=== PATIENT | female | born 1960 | race Caucasian/White ===

== ENCOUNTER 2017-06-07 20:23 | Emergency (ER) | payer BC ==
[~2017-06-07] VITALS: Ht 165.1 cm; Wt 110.0 kg
[~2017-06-07 20:23] MED LIST: ALBU1AER INH; CLON.1 PO; CYCL-36 PO; HYDR-3129 PO; MEDR4PAK3 PO; NEUR800T PO; XANA0.5T PO
[2017-06-07 20:25] VITALS: BP 196/103; PULSE 99; RESP 22; TEMP 99.4; O2SAT 98
--- NOTE | 2017-06-07 20:43 | PD ---
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 Vital signs reviewed. Seen at triage desk. Awaiting bed placement. Data Data Last Documented VS Vital Signs Date Time Temp Pulse Resp B/P Pulse Ox O2 Delivery O2 Flow Rate FiO2 06/07/17 20:25 99.4 99 22 196/103 98 Room Air MDM Medical Record Reviewed: Yes Supervised Visit with KIRAN: Luis Alberto Marrero Jun 07, 2017 20:43
[2017-06-07] MEDS ORDERED: methylPREDNISolone SOD SUCC 125 MG/2 ML VIAL IVP ONE (21:30)
[2017-06-07] MEDS ORDERED: SODIUM CHLORIDE 0.9% FLUSH 10 ML FLUSH IVF PRN (21:30)
[2017-06-07] MEDS: RESP: ALBUTEROL 2.5 MG/IPRATROPIUM 0.5 MG NEB (SCH) INH (21:41)
--- NOTE | 2017-06-07 21:41 | RADRPT ---
EXAM DATE/TIME: 06/07/2017 21:30 [facility] COMPARISON: CHEST SINGLE AP, May 22, 2016, 17:07. INDICATIONS : Short of breath, chest pain MEDICAL HISTORY : Hypertension. Chronic obstructive pulmonary disease. SURGICAL HISTORY : None. ENCOUNTER: Initial ACUITY: 3 weeks PAIN SCORE: 10/10 LOCATION: chest FINDINGS: A single view of the chest demonstrates the lungs to be symmetrically aerated without evidence of mas s, infiltrate or effusion. The cardiomediastinal contours are unremarkable. Osseous structures are intact.CONCLUSION: 1. No acute findings. No effusion or pneumothorax. Fidencio Tinsley MD on June 07, 2017 at 21:37 Board Certified Radiologist. This report was verified electronically.
--- NOTE | 2017-06-07 21:45 | EKG ---
Date Performed: 06/07/2017 Time Performed: 21:00:33 PTAGE: 56 years EKG: Sinus rhythm LOW QRS VOLTAGE IN PRECORDIAL LEADS BORDERLINE ECG No significant change from prior electrocardiogra mJulio DOCTOR: Dino Osman Interpretating Date/Time 06/07/2017 21:44:07
[2017-06-07] MEDS ORDERED: PRED20 PO (21:48)
[2017-06-07] MEDS ORDERED: ALBUAER3 INH (21:48)
--- NOTE | 2017-06-07 21:48 | PD ---
HPI Chief Complaint: Respiratory Symptoms Time Seen by Provider: 21:19 Travel History International Travel<30 days: No Contact w/Intl Traveler<30days: No Traveled to known affect area: No History of Present Illness HPI 56 yo F c/o shortness of breath x 3 weeks. SOB is worse with exertion. No orthopnea. No cough or fever. No CP. Pt has hx COPD. She smokes 1 cigarette daily. Pt was recently seen at [facility] for similar complaint and she went home with albuterol bullets however has no condenser and has been unable to use it. Steroids prescribed with prior visit were marginally helpful. PFSH Past Medical History Arthritis: No Asthma: No Autoimmune Disease: No Blood Disorders: No Anxiety: No Depression: No Heart Rhythm Problems: No Cancer: Yes (R KIDNEY) Cardiac Catheterization: No Cardiovascular Problems: Yes (htn) High Cholesterol: No Chemotherapy: No Chest Pain: No Congestive Heart Failure: No COPD: Yes Cerebrovascular Accident: Yes Diabetes: No Diminished Hearing: No Endocrine: No Gastrointestinal Disorders: No GERD: No Glaucoma: No Genitourinary: No Headaches: No Hepatitis: No Hiatal Hernia: No Hypertension: Yes Immune Disorder: No Kidney Stones: No Musculoskeletal: Yes (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) Neurologic: No Psychiatric: No Reproductive: No Respiratory: Yes (copd) Immunizations Current: Yes Migraines: No Myocardial Infarction: No Radiation Therapy: No Renal Failure: No Seizures: No Sickle Cell Disease: No Sleep Apnea: No Thyroid Disease: No Ulcer: No PNEUMOCCOCAL Vaccine (Year): 2 Menopausal: Yes : 0 Past Surgical History Abdominal Surgery: Yes (RIGHT SIDED ABD HERNIA REPAIR) AICD: No Appendectomy: Yes Arteriovenous Shunt: No Body Medical Devices: MESH OVER RIGHT KIDNEY AREA Cardiac Surgery: No Cholecystectomy: Yes Coronary Artery Bypass Graft: No Ear Surgery: No Endocrine Surgery: No Eye Surgery: No Genitourinary Surgery: Yes (RT NEPHRECTOMY SECONDARY TO CANCER) Gynecologic Surgery: No Insulin Pump: No Joint Replacement: No Oral Surgery: No Pacemaker: No Prostatectomy: No Thoracic Surgery: No Tonsillectomy: Yes Other Surgery: Yes Social History Alcohol Use: Yes Tobacco Use: Yes (11/15 PPD) Substance Use: No Allergies-Medications (Allergen,Severity, Reaction): Coded Allergies: Aspirin (Verified Adverse Reaction, Intermediate, Nausea/Vomiting, 06/07/17 ) Shellfish (Verified Adverse Reaction, Intermediate, NAUSEA/VOMITING, ) Morphine (Verified Adverse Reaction, Mild, Hallucinations, 06/07/17) Reported Meds & Prescriptions Reported Meds & Active Scripts Active Proair Hfa 8.5 GM Inh (Albuterol Sulfate) 90 Mcg/Act Aer 2 Puff INH Q4-6H PRN 108 mcg/actuation Prednisone 20 Mg Tab 40 Mg PO DAILY 4 Days Take 40 mg (2 tablets) daily for 5 days Medrol Dosepak (Methylprednisolone) 4 Mg Coleman 4 Mg PO DIRECTED TAKE DIRECTED Reported Gabapentin 300 Mg Cap 300 Mg PO HS Clonidine (Clonidine HCl) 0.1 Mg Tab 0.1 Mg PO BID Flexeril (Cyclobenzaprine HCl) 10 Mg Tab 10 Mg PO DAILY [place] (Hydrocodone-Acetaminophen) 10-325 Mg Tab 1 Tab PO Q6H PRN Review of Systems Except as stated in HPI: all other systems reviewed are Neg General / Constitutional: No: Fever Respiratory: Positive: Shortness of Breath Physical Exam Narrative GENERAL: 56 yo F, WNWD, speaking sentences SKIN: Warm and dry. HEAD: Atraumatic. Normocephalic. EYES: Pupils equal and round. No scleral icterus. No injection or drainage. ENT: No nasal bleeding or discharge. Mucous membranes pink and moist. NECK: Trachea midline. No JVD. CARDIOVASCULAR: Regular rate and rhythm. RESPIRATORY: Slightly diminished breath sounds bilaterally. RR approx 18. GASTROINTESTINAL: Abdomen soft, non-tender, nondistended. Hepatic and splenic margins not palpable. MUSCULOSKELETAL: Extremities without clubbing, cyanosis, or edema. No obvious deformities. NEUROLOGICAL: Awake and alert. No obvious cranial nerve deficits. Motor grossly within normal limits. Five out of 5 muscle strength in the arms and legs. Normal speech. PSYCHIATRIC: Appropriate mood and affect; insight and judgment normal. Data Data Last Documented VS Vital Signs Date Time Temp Pulse Resp B/P Pulse Ox O2 Delivery O2 Flow Rate FiO2 06/07/17 23:27 79 16 174/75 95 06/07/17 21:21 Nasal Cannula 2 06/07/17 20:25 99.4 Orders Complete Blood Count With Diff (06/07/17 21:19) Basic Metabolic Panel (Bmp) (06/07/17 21:19) B-Type Natriuretic Peptide (06/07/17 21:19) Ckmb (Isoenzyme) Profile (06/07/17 21:19) Troponin I (06/07/17 21:19) Iv Access Insert/Monitor (06/07/17 21:19) Electrocardiogram (06/07/17 21:19) Ecg Monitoring (06/07/17 21:19) Oximetry (06/07/17 21:19) Oxygen Administration (06/07/17 21:19) Chest, Single Ap (06/07/17 21:19) Sodium Chloride 0.9% Flush (Ns Flush) (06/07/17 21:30) Methylprednisolone So Succ Inj (Solumedr (06/07/17 21:30) Albuterol-Ipratropium Neb (Duoneb Neb) (06/07/17 21:30) Labs Laboratory Tests Test 06/07/17 21:45 White Blood Count 8.8 TH/MM3 Red Blood Count 4.98 MIL/MM3 Hemoglobin 15.6 GM/DL Hematocrit 46.9 % Mean Corpuscular Volume 94.1 FL Mean Corpuscular Hemoglobin 31.2 PG Mean Corpuscular Hemoglobin 33.2 % Concent Red Cell Distribution Width 14.2 % Platelet Count 198 TH/MM3 Mean Platelet Volume 9.0 FL Neutrophils (%) (Auto) 62.8 % Lymphocytes (%) (Auto) 29.8 % Monocytes (%) (Auto) 4.8 % Eosinophils (%) (Auto) 2.0 % Basophils (%) (Auto) 0.6 % Neutrophils # (Auto) 5.5 TH/MM3 Lymphocytes # (Auto) 2.6 TH/MM3 Monocytes # (Auto) 0.4 TH/MM3 Eosinophils # (Auto) 0.2 TH/MM3 Basophils # (Auto) 0.0 TH/MM3 CBC Comment DIFF FINAL Differential Comment Sodium Level 142 MEQ/L Potassium Level 4.5 MEQ/L Chloride Level 105 MEQ/L Carbon Dioxide Level 29.7 MEQ/L Anion Gap 7 MEQ/L Blood Urea Nitrogen 14 MG/DL Creatinine 1.01 MG/DL Estimat Glomerular Filtration 57 ML/MIN Rate Random Glucose 98 MG/DL Calcium Level 9.8 MG/DL Total Creatine Kinase 58 U/L Troponin I LESS THAN 0.02 NG/ML B-Type Natriuretic Peptide 7 PG/ML MDM Medical Decision Making Medical Screen Exam Complete: Yes Emergency Medical Condition: Yes Medical Record Reviewed: Yes Differential Diagnosis COPD, pneumonia, anemia, bronchitis, CHF Narrative Course CBC & BMP Diagram 06/07/17 21:45 CXR NACPD Tn < 0.02 BNP 7 EKG: sinus, rate 88, normal axis, normal intervals The patient is resting comfortably and feels better, is alert and in no distress. The patients results and examination findings were discussed. The repeat examination is unremarkable and benign. The history, exam, diagnostic testing, and current condition do not suggest any significant pathology to warrant further testing, continued ED treatment, admission, or surgical evaluation at this point. The vital signs have been stable. The patient does not have uncontrollable pain, intractable vomiting, or other significant symptoms. The patient's condition is stable and appropriate for discharge. The patient will pursue further outpatient evaluation with a primary care physician or other designated or consulting physician as indicated in the discharge instructions. The patient expressed understanding and was agreeable with this plan. Diagnosis Primary Impression: Shortness of breath Additional Impression: COPD (chronic obstructive pulmonary disease) Qualified Code: J44.9 - Chronic obstructive pulmonary disease, unspecified COPD type Referrals: Primary Care Physician 2 days Additional Instructions: You have a choice when it comes to health care, and we are glad that you chose [facility]. Hopefully, we have met your expectations on today's visit. You are welcome to return to [facility] at any time, as we are committed to meeting the health care needs of our community. Med/Other Pt SpecificInfo: Prescription(s) given Scripts Albuterol 8.5 GM Inh (Proair Hfa 8.5 GM Inh)90 Mcg/Act Aer2 Puff INH Q4-6H PRN ( SHORTNESS OF BREATH) #1 INHALER Ref 0 108 mcg/actuation Prov:Daryn Soto MD 06/07/17 Prednisone 20 Mg Tab40 Mg PO DAILY 4 Days Ref 0 Take 40 mg (2 tablets) daily for 5 days Prov:Daryn Soto MD 06/07/17 Disposition: 01 DISCHARGE HOME Condition: Stable Daryn Soto MD Jun 07, 2017 21:48
[2017-06-07 22:17] LABS: AUTOMATED NEUTROPHIL # 5.5 TH/MM3 (1.8-7.7); BASOPHIL % 0.6 % (0.0-2.0); EOSINOPHIL # 0.2 TH/MM3 (0-0.4); HEMATOCRIT 46.9 % (35.0-46.0); HEMO FLAGS DIFF FINAL; LYMPH % 29.8 % (9.0-44.0); LYMPHOCYTE # 2.6 TH/MM3 (1.0-4.8); MEAN CELL VOLUME 94.1 FL (80.0-100.0); MEAN CORPUSCULAR HEMOGLOBIN 31.2 PG (27.0-34.0); MEAN CORPUSCULAR HGB CONC 33.2 % (32.0-36.0); MONO % 4.8 % (0.0-8.0); NEUT % 62.8 % (16.0-70.0); PLATELET COUNT 198 TH/MM3 (150-450); RED BLOOD COUNT 4.98 MIL/MM3 (4.00-5.30); RED CELL DISTRIBUTION WIDTH 14.2 % (11.6-17.2); WHITE BLOOD COUNT 8.8 TH/MM3 (4.0-11.0)
[2017-06-07 22:40] LABS: ANION GAP 7 MEQ/L (5-15); BICARBONATE 29.7 MEQ/L (21.0-32.0); BLOOD UREA NITROGEN 14 MG/DL (7-18); CHLORIDE 105 MEQ/L (98-107); GLOMERULAR FILTRATION RATE 57 ML/MIN (>89); POTASSIUM 4.5 MEQ/L (3.5-5.1); SODIUM (NA) 142 MEQ/L (136-145)
[2017-06-07 22:41] LABS: CREATINE KINASE 58 U/L (26-192)
[2017-06-07 23:27] VITALS: BP 174/75
[2017-06-07] MEDS ORDERED: HYDR-3366 PO (23:27)
[2017-06-07] MEDS ORDERED: CYCL1TAB29 PO (23:27)
[2017-06-07] MEDS ORDERED: GABA300C5 PO (23:27)
[2017-06-07] MEDS ORDERED: CLON0.1T PO (23:27)
== END 2017-06-07 23:30 | disposition home or self-care (01) ==
LOC: NEPD 20:23
DX: J44.9 Chronic obstructive pulmonary disease, unspecified (principal); I10 Essential (primary) hypertension; F17.210 Nicotine dependence, cigarettes, uncomplicated; Z86.73 Personal history of transient ischemic attack (TIA), and cerebral infarction without residual deficits; Z88.6 Allergy status to analgesic agent; Z88.5 Allergy status to narcotic agent; Z79.899 Other long term (current) drug therapy
CPT/HCPCS: 71010; 80048; 82550; 83880; 84484; 85025; 93005; 94640; 94664; 96374; 99285; J2930

== ENCOUNTER 2018-05-01 22:56 | Emergency (ER) | payer BC ==
[~2018-05-01] VITALS: Ht 165.1 cm; Wt 96.0 kg
[~2018-05-01 22:56] MED LIST changes: -ALBU1AER INH; +ALBUAER3 INH; -CLON.1 PO; +CLON0.1T PO; -CYCL-36 PO; +CYCL10TA PO; +GABA300C5 PO; -HYDR-3129 PO; +HYDR-3366 PO; -NEUR800T PO; +PRED20 PO; -XANA0.5T PO
[2018-05-01 23:02] VITALS: BP 166/90; PULSE 98; RESP 16; TEMP 98.5; O2SAT 95
--- NOTE | 2018-05-01 23:33 | PD ---
HPI Chief Complaint: Injury Time Seen by Provider: 23:25 Travel History International Travel<30 days: No Contact w/Intl Traveler<30days: No Traveled to known affect area: No History of Present Illness HPI 57-year-old female presents for evaluation of right foot injury. She reports that this afternoon she was getting ready for work at home when she hit her right foot against a coffee table. She now has pain primarily to the right third toe but she has some mild pain to the right second and fourth toes as well. Pain is throbbing, constant, aggravated by walking, no alleviating factors. Denies any open wounds. Denies any other injuries and she has no other complaints at this time. PFSH Past Medical History Arthritis: No Asthma: No Autoimmune Disease: No Blood Disorders: No Anxiety: No Depression: No Heart Rhythm Problems: No Cancer: Yes (R KIDNEY) Cardiac Catheterization: No Cardiovascular Problems: Yes (HTN) High Cholesterol: No Chemotherapy: No Chest Pain: No Congestive Heart Failure: No COPD: Yes Cerebrovascular Accident: Yes Diabetes: No Diminished Hearing: No Endocrine: No Gastrointestinal Disorders: No GERD: No Glaucoma: No Genitourinary: No Headaches: No Hepatitis: No Hiatal Hernia: No Hypertension: Yes Immune Disorder: No Kidney Stones: No Musculoskeletal: Yes (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) Neurologic: No Psychiatric: No Reproductive: No Respiratory: Yes (COPD) Immunizations Current: Yes Migraines: No Myocardial Infarction: No Radiation Therapy: No Renal Failure: No Seizures: No Sickle Cell Disease: No Sleep Apnea: No Thyroid Disease: No Ulcer: No Tetanus Vaccination: < 5 Years Influenza Vaccination: Yes PNEUMOCCOCAL Vaccine (Year): 2 ?: Not Menopausal: Yes : 0 Past Surgical History Abdominal Surgery: Yes (RIGHT SIDED ABD HERNIA REPAIR) AICD: No Appendectomy: Yes Arteriovenous Shunt: No Body Medical Devices: MESH OVER RIGHT KIDNEY AREA Cardiac Surgery: No Cholecystectomy: Yes Coronary Artery Bypass Graft: No Ear Surgery: No Endocrine Surgery: No Eye Surgery: No Genitourinary Surgery: Yes (RT NEPHRECTOMY SECONDARY TO CANCER) Gynecologic Surgery: No Insulin Pump: No Joint Replacement: No Oral Surgery: No Pacemaker: No Prostatectomy: No Thoracic Surgery: No Tonsillectomy: Yes Other Surgery: Yes Social History Alcohol Use: Yes Tobacco Use: Yes (11/15 PPD) Substance Use: No Allergies-Medications (Allergen,Severity, Reaction): Coded Allergies: aspirin (Unverified Adverse Reaction, Intermediate, Nausea/Vomiting, ) shellfish derived (Unverified Adverse Reaction, Intermediate, NAUSEA/ VOMITING, 06/26/17) morphine (Unverified Adverse Reaction, Mild, Hallucinations, 06/26/17) Reported Meds & Prescriptions Reported Meds & Active Scripts Active Proair Hfa 8.5 GM Inh (Albuterol Sulfate) 90 Mcg/Act Aer 2 Puff INH Q4-6H PRN 108 mcg/actuation Prednisone 20 Mg Tab 40 Mg PO DAILY 4 Days Take 40 mg (2 tablets) daily for 5 days Medrol Dosepak (Methylprednisolone) 4 Mg Coleman 4 Mg PO DIRECTED TAKE DIRECTED Reported Gabapentin 300 Mg Cap 300 Mg PO HS Clonidine (Clonidine HCl) 0.1 Mg Tab 0.1 Mg PO BID Flexeril (Cyclobenzaprine HCl) 10 Mg Tab 10 Mg PO DAILY [place] (Hydrocodone-Acetaminophen) 10-325 Mg Tab 1 Tab PO Q6H PRN Review of Systems Musculoskeletal: Positive: Pain Skin: Positive Other (Positive for bruising) Neurologic: No: Paresthesia Physical Exam Narrative GENERAL: Well-developed well-nourished female no acute distress SKIN: Warm and dry. Some ecchymosis is noted to the distal right third toe. No open wounds. CARDIOVASCULAR: Regular rate and rhythm. No murmur appreciated. RESPIRATORY: No accessory muscle use. Clear to auscultation. Breath sounds equal bilaterally. MUSCULOSKELETAL: No obvious deformities. There is tenderness to palpation to the distal right second third and fourth toes, primarily the right third toe. Associated ecchymosis as noted above. There is no obvious bony deformity. Distal sensation is preserved. NEUROLOGICAL: Awake and alert. No obvious cranial nerve deficits. Motor grossly within normal limits. Normal speech. Data Data Last Documented VS Vital Signs Date Time Temp Pulse Resp B/P (MAP) Pulse Ox O2 Delivery O2 Flow Rate FiO2 05/01/18 23:02 98.5 98 16 166/90 (115) 95 Orders Orders Foot, Complete ([id number]) (05/01/18 ) Ice/Cold Pack (05/01/18 23:30) Splint Or Brace Apply/Monitor (05/02/18 00:05) Ed Discharge Order (05/02/18 00:05) [facility] Medical Decision Making Medical Screen Exam Complete: Yes Emergency Medical Condition: Yes Medical Record Reviewed: Yes Differential Diagnosis Toe sprain, contusion, fracture Narrative Course Ice pack provided. X-ray imaging of the right foot will be obtained. X-ray imaging reveals no acute abnormalities. The patient appears to have a right third toe sprain. Angel tape splint and postop shoe will be applied. Stable for discharge. Diagnosis Primary Impression: Toe sprain Additional Instructions: Angel tape splint and postop shoe as needed. Ice the area several times a day 15 minutes at a time. Elevate. Tylenol/Motrin for pain. Follow-up with primary care physician as needed and return for any emergent medical conditions. Med/Other Pt SpecificInfo: Orthopedic Instructions Disposition: 01 DISCHARGE HOME Condition: Stable Luis Alberto Witt May 01, 2018 23:33
--- NOTE | 2018-05-01 23:58 | RADRPT ---
EXAM DATE: 05/01/2018 11:54 PM EDT AGE/SEX: 57 years / Female INDICATIONS: Stubbed right foot on coffee table. CLINICAL DATA: This is the patient's initial encounter. Patient reports that signs and symptoms have been present for 1 day and indicates a pain score of 2/10. MEDICAL/SURGICAL HISTORY: None. None. COMPARISON: No prior exams available for comparison. FINDINGS: Bony structures are intact and in normal alignment. Osseous density is normal. Soft tissues are unre markable. No radiopaque foreign bodies seen. Prominent spurring from the calcaneus CONCLUSION: Prominent calcaneal spurring. The bones are otherwise unremarkable Electronically signed by: Gt Mishra MD 05/01/2018 11:57 PM EDT
== END 2018-05-02 00:33 | disposition home or self-care (01) ==
LOC: NEPD 22:56
DX: S93.504A Unspecified sprain of right lesser toe(s), initial encounter (principal); W22.03XA Walked into furniture, initial encounter; Y92.009 Unspecified place in unspecified non-institutional (private) residence as the place of occurrence of the external cause; I10 Essential (primary) hypertension; J44.9 Chronic obstructive pulmonary disease, unspecified; F17.200 Nicotine dependence, unspecified, uncomplicated; Z85.528 Personal history of other malignant neoplasm of kidney; Z90.5 Acquired absence of kidney; Z86.73 Personal history of transient ischemic attack (TIA), and cerebral infarction without residual deficits; Z79.899 Other long term (current) drug therapy
CPT/HCPCS: 73630; 99283; L3260